=== PATIENT | female | born 1985 | race African-American/Black ===

== ENCOUNTER 2019-02-10 02:55 | Emergency (ER) | payer OTHER ==
[~2019-02-10] VITALS: Ht 165.1 cm; Wt 104.3 kg
[~2019-02-10 02:55] MED LIST: ADVIL100 M2 PO; CLARITIN-D 24 H1 TA1; COLACE100 MG PO; DOXYCYCLINE 10100 MG PO; HYDROCHLOROTHIA25 M1; KEFLEX500 MG PO; MEDROLDOSEPACK PO; MELATONIN1 MG PO; MIRALAX17 GM PO; NAPROSYN250 MG PO; NOHOMEMEDICATIONS; NORCO 5-325 TA1 EACH PO; ONDANSETRON HCL4 M2 PO; PHENERGAN 25 MG25 M1 PO; PHENERGAN 25 MG25 MG PO; PRENATAL; PREVACID30 MG PO; PROMETHAZINE HC25 M1 PO; PROMS25 WY RECTAL; PROTONIX40 M1 PO; TRANSDERM-SCO1 PATC1 TD; TYLENOL325 MG PO; VALIUM5 MG PO; WELLBUTRIN 100100 M1 NG; ZOFRAN ODT4 MG PO; ZOLOFT 50 MG TA50 MG PO; ZOLOFT25 MG PO
[2019-02-10 03:43] LABS: ABSOLUTE LYMPHOCYTES 1.9 thou/uL (0.8-5.3); ABSOLUTE MONOCYTES 0.3 thou/uL (0.0-1.2); ABSOLUTE NEUTROPHILS 2.2 thou/uL (1.6-8.1); BASOPHILS 0.8 %; EOSINOPHILS 0.5 %; HEMATOCRIT 31.2 % (37.0-47.0); HEMOGLOBIN 10.7 gm/dL (12.0-15.0); LYMPHOCYTES 41.5 %; MCH 30.8 pg (26.0-34.0); MCHC 34.3 g/dL (28.0-37.0); MCV 89.6 fL (80.0-100.0); MONOCYTES 7.6 %; MPV 9.4 fl. (7.2-11.1); NUCLEATED RBCS 0 /100WBC; PLATELET COUNT* 164 thou/uL (150-400); POLYS 49.6 %; RBC 3.48 mil/uL (4.20-5.00); WBC 4.5 thou/uL (4.0-11.0)
[2019-02-10 03:51] LABS: URIC ACID* 2.9 mg/dL (2.6-7.2)
[2019-02-10 03:57] LABS: ANION GAP 7 mmol/L (7-16); BUN 5 mg/dL (7-18); CHLORIDE 106 mmol/L (98-107); CO2 26 mmol/L (21-32); CREATININE 0.8 mg/dL (0.6-1.3); GLUCOSE 95 mg/dL (70-99); POTASSIUM 3.9 mmol/L (3.5-5.1); SODIUM 139 mmol/L (136-145)
[2019-02-10 04:08] LABS: ALBUMIN 2.3 g/dL (3.4-5.0); ALKALINE PHOSPHATASE 191 U/L (46-116); NT-PRO BRAIN NAT PEPTIDE 74 pg/mL (<300); SGOT 18 U/L (15-37); SGPT 15 U/L (30-65); TOTAL BILIRUBIN 0.8 mg/dL (<0.1-1.0); TOTAL PROTEIN 5.4 g/dL (6.4-8.2); TROPONIN-I LEVEL <0.06 ng/mL (<0.06)
[2019-02-10 04:52] LABS: URINE BILIRUBIN NEGATIVE (Negative); URINE BLOOD NEGATIVE (Negative); URINE CLARITY CLEAR; URINE COLOR YELLOW; URINE GLUCOSE-RANDOM NEGATIVE (Negative); URINE KETONES NEGATIVE (Negative); URINE LEUKOCYTES NEGATIVE (Negative); URINE NITRITE NEGATIVE (Negative); URINE PROTEIN NEGATIVE (Negative); URINE SPECIFIC GRAVITY <= 1.005 (1.005-1.030); URINE UROBILINOGEN 0.2 E.U./dl (0.2-1.0)
[2019-02-10 06:32] VITALS: BP 134/74
--- NOTE | 2019-02-10 17:16 | EKG ---
[place] [address] ELECTROCARDIOGRAM REPORT Name: DAO ROBERTSON Room: [facility]#: [id number] Admission: 02/10/19 Attend Phys: Discharge: 02/10/19 Date of : 83 Report #: [id number] THIS REPORT FOR: //name// [facility] ED Test Date: 2019-02-10 Test Time: 03:03:37 Pat Name: DAO ROBERTSON Department: Room: Gender: F Appointment Manager: MR : 1985 Requested By: Patty Gupta Order Number: [id number] MD: Benitez Lazar Measurements Intervals [place] Rate: 65 P: 32 NH: 167 QRS: 40 QRSD: 89 T: 13 QT: 406 QTc: 423 Interpretive Statements Sinus rhythm Nonspecific T abnormalities, anterior leads Compared to ECG 03/20/2017 16:17:22 Sinus tachycardia no longer present Possible ischemia no longer present T-wave abnormality still present Electronically Signed On 02-10-2019 17:16:04 CDT by Benitez Lazar [email or web address] <ELECTRONICALLY SIGNED> By: Benitez Lazar MD, [facility] 02/10/19 [id number] Benitez Lazar MD, [facility] /EPI
== END 2019-02-10 06:34 | disposition short-term general hospital (02) ==
LOC: M.ERS 02:55
PROVIDERS: Emergency Medicine
DX: O16.3 Unspecified maternal hypertension, third trimester (principal); O26.893 Other specified pregnancy related conditions, third trimester; R42 Dizziness and giddiness; Z98.890 Other specified postprocedural states; Z90.49 Acquired absence of other specified parts of digestive tract; Z3A.36 36 weeks gestation of pregnancy